=== PATIENT | female | born 1945 | race Caucasian/White ===

== ENCOUNTER → 2016-10-29 | Outpatient (CLI) | payer MEDICARE, BC ==
--- NOTE | ~2016-10-29 | CT71 ---
[facility] A Service [facility] RADIOLOGY TEXT RESULTS PATIENT: LUMA MUHAMMAD LOCATION: [facility] : 49 UNIT #: [id number] AGE: [address]: Isaías Wallace MD SEX: F ORDER DR: [id number] [place] [id number] O MR#: [id number] Acc #: [id number] NAME: LUMA MUHAMMAD : 1945 SEX: F STUDY DATE/TIME: 10/29/2016 13:30 UNIT: [facility] ROOM: STUDY DESCRIPTION: CT Head Wo Contrast Attending Physician: Isaías Wallace M.D. Referring Physician: Isaías Wallace M.D. Ordering Physician: Isaías Wallace M.D. Primary Care Physician: Toby Archer M.D. MEDICAL IMAGING REPORT This report is preliminary unless electronic signature is present. EXAM CT head without contrast 10/29/2016 HISTORY 71-year-old female with memory loss for 5-6 months. HISTORY Multiple falls. COMPARISON STUDIES CT head 02/10/2016 TECHNIQUE Routine unenhanced axial images performed through the brain. This CT exam was performed with one or more of the following radiation dose reduction techniques: automatic exposure control, adjustment of mA and/or kV according to patient size, and iterative reconstruction. FINDINGS No hemorrhage, acute infarction, mass lesion, or abnormal extraaxial fluid collection. No midline shift or focal mass effect. Ventricular system is normal in size and configuration. No acute bony abnormality or visualized mass. IMPRESSION Visualized paranasal sinuses and mastoid air cells are clear. No acute intracranial abnormality. Dictated by... Antonio Calixto M.D. [facility] A Service [facility] RADIOLOGY TEXT RESULTS PATIENT: LUMA MUHAMMAD LOCATION: [facility] : 49 UNIT #: [id number] AGE: [address]: Isaías Wallace MD SEX: F ORDER DR: THIS IS AN ELECTRONICALLY VERIFIED REPORT Antonio Calixto M.D. at 11/08/2016 9:02 AM KAYR/kale TD: 10/29/2016 19:12 JOB #: [id number] MEDICAL IMAGING REPORT Page 1 of 1
== END | disposition home or self-care (01) ==
LOC: SCT 13:14
DX: F09 Unspecified mental disorder due to known physiological condition (principal); R41.3 Other amnesia; W19.XXXD Unspecified fall, subsequent encounter
CPT/HCPCS: 70450